=== PATIENT | female | born 1985 | race Caucasian/White ===

== ENCOUNTER 2023-09-19 19:59 | Emergency (ER) | payer OTHER, BC ==
[~2023-09-19] VITALS: Ht 162.6 cm; Wt 61.2 kg
[2023-09-19] MEDS ORDERED: Doxycycline Hyclate 100 MG TAB PO ONE (21:50)
[2023-09-19] MEDS ORDERED: DOXY100 PO (21:52)
[2023-09-19] MEDS ORDERED: Diphth,Pertuss(Acell),Tet Vac 0.5 ML VIAL IM ONE (21:55)
== END 2023-09-19 22:10 | disposition home or self-care (01) ==
LOC: ER 19:59
DX: S40.862A Insect bite (nonvenomous) of left upper arm, initial encounter (principal); W57.XXXA Bitten or stung by nonvenomous insect and other nonvenomous arthropods, initial encounter
CPT/HCPCS: 10120; 90471; 90715; 99282-25; A9270